=== PATIENT | female | born 1995 | race African-American/Black ===

== ENCOUNTER 2021-09-13 21:47 | Emergency (ER) | payer OTHER ==
[2021-09-13 22:00] VITALS: BMI 27.3
[2021-09-13] MEDS ORDERED: predniSONE 20 MG TABLET (UD) ONE (22:59)
[2021-09-13] MEDS ORDERED: predniSONE 10 MG TABLET (UD) ONE (22:59)
[2021-09-13] MEDS: predniSONE 20 MG TABLET (UD) PO ONE ×2 (23:04)
[2021-09-13] MEDS: predniSONE 20 MG TABLET (UD) PO SCH ×2 (23:04→23:06)
[2021-09-13] MEDS ORDERED: predniSONE 20 MG TABLET (UD) PO SCH (23:07)
[2021-09-13] MEDS ORDERED: ALBUTEROL SO4 2.5/IPRATROPIUM 0.5 INH SOL 3 ML VIAL.NEB. NEB ONE ×2 (23:45→23:47)
[2021-09-14 01:11] VITALS: BP 126/87; PULSE 110; TEMP 98.8
[2021-09-14] MEDS ORDERED: predniSONE 20 MG TABLET (UD) PO ONE (22:41)
== END 2021-09-14 01:30 | disposition home or self-care (01) ==
LOC: JER 21:47
PROC: 3E0F7GC Introduction of Other Therapeutic Substance into Respiratory Tract, Via Natural or Artificial Opening (ICD-10-PCS; principal; 2021-09-13)
DX: J45.901 Unspecified asthma with (acute) exacerbation (principal)
CPT/HCPCS: 87804; 93005; 93010; 99284-25; C9803; U0003; U0005